=== PATIENT | male | born 1970 | race Caucasian/White ===

== ENCOUNTER 2025-11-22 10:31 | Emergency (ER) | payer OTHER | END 2025-11-22 11:47 | disposition home or self-care (01) | LOC: CSHERS 10:31 | DX: S02.5XXA Fracture of tooth (traumatic), initial encounter for closed fracture (principal); K04.7 Periapical abscess without sinus; E11.9 Type 2 diabetes mellitus without complications; F17.210 Nicotine dependence, cigarettes, uncomplicated; W19.XXXA Unspecified fall, initial encounter | CPT/HCPCS: 99283 ==